=== PATIENT | male | born 1965 | race Caucasian/White ===

== ENCOUNTER 2016-08-19 11:38 | Outpatient (CLI) | payer OTHER ==
[2016-08-19 12:27] LABS: eGFR (African) > 60; eGFR (Non-African) > 60
== END 2016-08-19 11:40 ==
LOC: LAB 11:38
PROVIDERS: ATTEND Family Medicine
DX: E11.9 Type 2 diabetes mellitus without complications (principal)
CPT/HCPCS: 36415; 80053; 80061; 82043; 83036

== ENCOUNTER 2017-02-19 09:23 | Outpatient (CLI) | payer OTHER ==
[2017-02-19 10:03] LABS: eGFR (African) > 60; eGFR (Non-African) > 60
== END 2017-02-19 09:53 ==
LOC: LAB 09:23
PROVIDERS: ATTEND Family Medicine
DX: E11.65 Type 2 diabetes mellitus with hyperglycemia (principal)
CPT/HCPCS: 36415; 80053; 80061; 83036

== ENCOUNTER 2017-08-11 10:05 | Emergency (ER) | payer OTHER ==
[2017-08-11 10:41] LABS: BASOPHILS % 0.3 (0.0-1.5); EOSINOPHILS % 1.3 % (0.0-6.8); MONOCYTES % 9.3 % (0.0-11.0); NEUTROPHILS # 2.4 # k/uL (1.4-7.7)
[2017-08-11 11:33] LABS: eGFR (African) > 60; eGFR (Non-African) > 60
--- NOTE | 2017-08-11 13:09 | ED Physician Documentation ---
Chest Pain - HPI Stated Complaint: Chest discomfort Chief Complaint: Chest Pain Onset: days ago (Wednesday) Timing: gone now Last known Well Date: 08/09/17 Last Known Well Time: 12:00 Context: rest, activity (was moving rocks over the weekend) Severity: moderate Quality: pressure, tightness Chest Pain Radiation: no radiation Chest Pain Signs/Symptoms: nausea, diaphoresis Worsened By: nothing Relieved By: rest Further Comments: yes (52 year old male patient presents with complaints of intermittent chest pain since Wednesday. Patient reports moving rock over the weekend. Report nausea with some episodes of chest pain and diaphoresis at times. Denies radiation of pain, denies SOB.) - ROS CONST: none MS/LYMPH: none GI/: denies: abdominal pain, problems urinating, vomiting, nausea, diarrhea EYES/ENT: none SKIN/ENDO: none NEURO/PSYCH: none - PAST HX NE risk factors: hypertension, diabetes Type 2, hyperlipidemia DVT/PE Risk Factors: none TAD/AAA risk factors: none Neuro deficit: none GI disease: none Allergies/Adverse Reactions: Allergies Allergy/AdvReac Type Severity Reaction Status Date / Time No Known Drug Allergies Allergy Verified 08/11/17 11:48 Home Medications: Ambulatory Orders Medication Instructions Recorded Promethazine HCl [Phenergan] 25 mg PO PRN PRN 08/11/17 - SOCIAL HX Smoking History: non-smoker - FAMILY HX Family HX: none - VITAL SIGNS Vital Signs: Vital Signs Temp Pulse Resp BP Pulse Ox 95 H 18 126/81 99 08/11/17 12:30 08/11/17 10:08 08/11/17 10:08 08/11/17 12:30 - REVIEWED ASSESSMENTS Nursing Assessment Reviewed: Yes Vitals Reviewed: Yes Progress - Progress Progress: Elevated LFT's noted; last LFT WNL, except ALT 75. Patient on metformin and a statin. Negative Wan's with assessment. Denies diarrhea, indigestion or abdominal pain. Denies daily ETOH use, reports using "maybe 1 Tylenol a day" [address] findings with patient, now states he had a couple of episodes of diarrhea this week; denies abdominal pain. Reviewed discharge instructions with patient, questions answered. ED Results Lab/Radiology - Lab Results Lab Results: Lab Results 08/11/17 08/11/17 08/11/17 10:25 10:25 10:25 WBC 4.30 K/ul K/ul (4.00-12.00) RBC 5.43 M/ul H M/ul (3.90-5.20) Hgb 15.7 g/dL g/dL (12.0-18.0) Hct 45.7 % % (37.0-53.0) MCV 84.0 fl fl (80.0-100.0) MCH 29.0 pg pg (28.0-34.0) MCHC 34.5 g/dL g/dL (30.0-36.0) RDW 13.2 % % (11.3-14.3) Plt Count 197 K/mm3 K/mm3 (130-400) Neut % (Auto) 56.0 % % (39.0-79.0) Lymph % (Auto) 28.9 % % (16.0-50.0) [place] % (Auto) 9.3 % % (0.0-11.0) Eos % (Auto) 1.3 % % (0.0-6.8) Baso % (Auto) 0.3 (0.0-1.5) Neut # (Auto) 2.4 # k/uL # k/uL (1.4-7.7) Lymph # (Auto) 1.3 # k/uL # k/uL (0.6-4.0) [place]land # (Auto) 0.4 # k/uL # k/uL (0.0-0.9) Eos # (Auto) 0.0 # k/uL # k/uL (0.0-0.6) Baso # (Auto) 0.0 # k/uL # k/uL (0.0-0.5) Reactive Lymphs % 4.3 % % (0.0-5.0) Reactive Lymphs # 0.2 # k/uL # k/uL (0.0-0.8) Sodium 137 mmol/L mmol/L (136-145) Potassium 4.5 mmol/L mmol/L (3.5-5.1) Chloride 105 mmol/L mmol/L (98-107) Carbon Dioxide 20 mmol/L L mmol/L (22-30) BUN 15 mg/dL mg/dL (9-20) Creatinine 0.80 mg/dL mg/dL (0.66-1.25) Estimated Creat Clear 104 Est GFR ( Amer) > 60 (60 - ) Est GFR (Non-Af Amer) > 60 (60 - ) Glucose 280 mg/dL H mg/dL (74-106) Calcium 8.9 mg/dL mg/dL (8.4-10.2) Total Bilirubin 0.9 mg/dL mg/dL (0.2-1.3) AST 64 U/L H U/L (15-46) ALT 131 U/L H U/L (13-69) Alkaline Phosphatase 163 U/L H U/L (38-126) Creatine Kinase 48 U/L L U/L (55-170) CK-MB (CK-2) 1.2 ng/mL ng/mL (0.0-5.6) Troponin I < 0.03 ng/mL L ng/mL (0.03-0.06) Total Protein 6.4 g/dL g/dL (6.3-8.2) Albumin 4.0 g/dL g/dL (3.5-5.0) - Radiology Radiology Impressions: Examination: PA and lateral chest. History: CXR, CHEST PAIN/ NAUSEA FOR A DAY AND A HALF, NON-SMOKER, NO KNOWN CHEST HX (Hx) Comparison exam: None provided. Findings: PA lateral chest demonstrate a normal cardiac and mediastinal silhouette. No focal infiltrate. No blunting of the costophrenic margins. Osseous structures are appropriate for age. Impression: No acute pulmonary process. Electronically signed on August 11, 2017 11:24:07 AM CDT by: Marcos Nunn Examination: CT Abdomen/pelvis History: PT C/O NAUSEA X 1 WEEK. (Hx) Comparison exams: None available Technique: CT Abdomen/pelvis with IV protocol. Findings: Liver demonstrates diffuse low attenuation. No central lesion. Spleen , adrenals, pancreas, kidneys and gallbladder are without gross irregularity. No gallstone. No suspicious renal calcifications. Ureters are nondilated in their course through the abdomen and pelvis. No central calcifications. Bladder margin within normal limits. Abdominal aorta without aneurysm. Peripheral atherosclerotic disease. Cardiac silhouette is not enlarged. No pericardial effusion. Mildly prominent loops of small bowel with mucosal thickening and air-fluid levels. Stool within the large bowel limiting sensitivity. Mild mucosal prominence. No mesenteric inflammatory changes or free fluid. Appendix is visualized and is without inflammatory changes. Osseous structures demonstrate degenerative changes. Lung bases without infiltrate. No effusion. Impression: No abdominal mass or acute upper abdominal organ inflammatory process. Prominent large and small bowel mucosa with small bowel air-fluid levels. Findings suggest a diffuse enteritis with possible early/mild colitis. Correlate with any underlying bowel medical issues. Fatty liver. No gallstone. No suspicious renal calcifications or abnormal ureteric dilation. No lung base consolidation or effusion. Electronically signed on August 11, 2017 1:01:51 PM CDT by: Marcos Nunn - Orders Orders: ED Orders Category Date Time Status Continuous EKG monitoring Q30M Care 08/11/17 10:13 Active Continuous Pulse Oximetry Q30M Care 08/11/17 10:[address] IV Lock 1T Care 08/11/17 10:13 Active CHEST 2VIEW [RAD] Stat Exams 08/11/17 10:[address] ABD & PELVIS W/ CON Stat Exams 08/11/17 Taken CBC/PLATELET/DIFF Stat Lab 08/11/17 10:25 Completed CKMB Stat Lab 08/11/17 10:25 Completed CMP Stat Lab 08/11/17 10:25 Completed CREATINE KINASE Stat Lab 08/11/17 10:25 Completed TROPONIN I (cTnI) Stat Lab 08/11/17 10:25 Completed Oxygen Daily Oxygen 08/11/17 10:15 Ordered EKG WITH COMPARISON Stat Ther 08/11/17 10:13 Ordered Chest Pain Physical Exam - EXAM General Appearance: no acute distress, alert EENT: eye inspection normal, ENT inspection normal, pharynx normal, no signs of dehydration, SHANTHI, no nystagmus, TM's nml Respiratory: no resp. distress, chest non-tender (not reproducible with palpation), nml breath sounds CVS: reg. rate & rhythm, no murmur, no gallop, no friction rub, pulses full, pulses equal Abdomen: soft, no organomegaly, normal bowel sounds, no abdominal bruit, no distension, other (negative Wan's). No: McBurney's point tenderne Skin: normal color, warm/dry, NR, INT, DR Extremities: non-tender, normal range of motion, no evidence of injury, no edema , J, [employer] Neuro: oriented X3, CN's nml as tested, motor nml, sensation nml, mood/affect nml Discharge Clincal Impression: Non-cardiac chest pain, Elevated LFTs Referrals: Shady Lora MD [Primary Care Provider] - 2 Days Additional Instructions: Make a follow up ER appointment with your primary care doctor. Rest Tylenol or ibuprofen as needed for discomfort Make an follow Er appointment with your primary care doctor in the next 3-5 days. Return to the ER if you have Chest pain with shortness of breath, nausea and sweating all over. Or pain radiating to jaws or shoulders. Condition: Stable Disposition: 01 HOME, SELF-CARE Decision to Admit: NO Decision Time: 13:13
[2017-08-11 14:12] VITALS: BP 124/79
--- NOTE | 2017-08-11 18:16 | Diagnostic Imaging Report ---
BIN BATES ([employer]) - ER [facility] [address] [address] Report Submission Date: August 11, 2017 11:24:07 AM CDT Patient Study Name: HODA LAIRD Date: August 11, 2017 11:04:55 AM CDT Modality Type: DX Gender: M Description: CHEST : 61 Institution: [facility] Physician: BNI BATES ([employer]) - ER Examination: PA and lateral chest. History: CXR, CHEST PAIN/ NAUSEA FOR A DAY AND A HALF, NON-SMOKER, NO KNOWN CHEST HX (Hx) Comparison exam: None provided. Findings: PA lateral chest demonstrate a normal cardiac and mediastinal silhouette. No focal infiltrate. No blunting of the costophrenic margins. Osseous structures are appropriate for age. Impression: No acute pulmonary process. Electronically signed on August 11, 2017 11:24:07 AM CDT by: Marcos TERRY
--- NOTE | 2017-08-11 18:18 | Diagnostic Imaging Report ---
BIN BATES ([employer]) - ER [facility] [address] [facility] [address] [place], [place]. [address] Report Submission Date: August 11, 2017 1:01:51 PM CDT Patient Study Name: HODA LAIRD Date: August 11, 2017 12:17:29 PM CDT Modality Type: CT\SR Gender: M Description: CT ABD PELVIS W/ CON : 61 Institution: [facility] Physician: BIN BATES (MOUNIKA) - ER Examination: CT Abdomen/pelvis History: PT C/O NAUSEA X 1 WEEK. (Hx) Comparison exams: None available Technique: CT Abdomen/pelvis with IV protocol. Findings: Liver demonstrates diffuse low attenuation. No central lesion. Spleen , adrenals, pancreas, kidneys and gallbladder are without gross irregularity. No gallstone. No suspicious renal calcifications. Ureters are nondilated in their course through the abdomen and pelvis. No central calcifications. Bladder margin within normal limits. Abdominal aorta without aneurysm. Peripheral atherosclerotic disease. Cardiac silhouette is not enlarged. No pericardial effusion. Mildly prominent loops of small bowel with mucosal thickening and air-fluid levels. Stool within the large bowel limiting sensitivity. Mild mucosal prominence. No mesenteric inflammatory changes or free fluid. Appendix is visualized and is without inflammatory changes. Osseous structures demonstrate degenerative changes. Lung bases without infiltrate. No effusion. Impression: No abdominal mass or acute upper abdominal organ inflammatory process. Prominent large and small bowel mucosa with small bowel air-fluid levels. Findings suggest a diffuse enteritis with possible early/mild colitis. Correlate with any underlying bowel medical issues. Fatty liver. No gallstone. No suspicious renal calcifications or abnormal ureteric dilation. No lung base consolidation or effusion. Electronically signed on August 11, 2017 1:01:51 PM CDT by: Marcos TERRY
== END 2017-08-11 13:30 | disposition home or self-care (01) ==
LOC: ED 10:05
DX: R07.89 Other chest pain (principal); R94.5 Abnormal results of liver function studies
CPT/HCPCS: 71046; 74177; 80053; 82550; 82553; 84484; 85025; 99285; S1016

== ENCOUNTER 2017-08-27 10:08 | Outpatient (CLI) | payer OTHER ==
[2017-08-27 10:59] LABS: eGFR (African) > 60; eGFR (Non-African) > 60
== END 2017-08-27 10:10 ==
LOC: LAB 10:08
PROVIDERS: ATTEND Family Medicine
DX: E11.65 Type 2 diabetes mellitus with hyperglycemia (principal); R74.8 Abnormal levels of other serum enzymes
CPT/HCPCS: 36415; 80053; 80061; 83036; 86704; 86706; 86709; 86803; 87340

== ENCOUNTER 2018-03-07 09:52 | Outpatient (CLI) | payer OTHER ==
[2018-03-07 10:32] LABS: eGFR (Non-African) > 60
== END 2018-03-07 09:53 ==
LOC: LAB 09:52
PROVIDERS: ATTEND Family Medicine
DX: E11.9 Type 2 diabetes mellitus without complications (principal)
CPT/HCPCS: 36415; 80053; 82043; 83036

== ENCOUNTER 2018-11-16 10:55 | Outpatient (CLI) | payer OTHER ==
[2018-11-16 11:39] LABS: A1C 7.7 % (<5.7); eGFR (Non-African) > 60
[2018-11-16 11:40] LABS: HDL 45 mg/dL (>40)
== END 2018-11-16 10:57 ==
LOC: LAB 10:55
PROVIDERS: ATTEND Family Medicine
DX: E11.9 Type 2 diabetes mellitus without complications (principal); Z79.4 Long term (current) use of insulin
CPT/HCPCS: 36415; 80053; 80061; 83036